=== PATIENT | female | born 1950 | race Caucasian/White ===

== ENCOUNTER 2017-04-15 06:08 | Emergency (ER) | payer BC ==
[2017-04-15] MEDS ORDERED: Ondansetron INJ* 2 MG/ML VIAL IV ONE (07:47)
[2017-04-15] MEDS ORDERED: Metoclopramide IV* 5 MG/ML 2 ML VIAL IV ONE (07:47)
[2017-04-15] MEDS ORDERED: NS 0.9% 1000 ML* 1,000 ML IV ONE (07:47)
--- NOTE | 2017-04-15 08:12 | RAD ---
HISTORY: Headaches radiating to neck COMPARISONS: January 21, 2007 TECHNIQUE: Multiple contiguous axial CT scans were obtained of the head without intravenous contrast. FINDINGS: HEMORRHAGE/INFARCT: There is no hemorrhage or acute infarct. MASSES/SHIFT: There is no mass or shift. EXTRA-AXIAL SPACES: There are no extra-axial fluid collections. SULCI AND VENTRICLES: The sulci and ventricles are normal in size and position for the patient's stated age. CEREBRUM: There are no focal parenchymal abnormalities. BRAINSTEM: There are no focal parenchymal abnormalities. CEREBELLUM: There are no focal parenchymal abnormalities. VESSELS: The vessels are grossly normal. PARANASAL SINUSES: The paranasal sinuses are clear. ORBITS: The orbits are unremarkable. BONES AND SOFT TISSUE: No bone or soft tissue abnormalities are noted. OTHER: None IMPRESSION: NO ACUTE INTRACRANIAL PATHOLOGY.
[2017-04-15 08:38] LABS: Hematocrit 37 % (35-47); Hemoglobin 12.1 g/dl (12.0-16.0); Mean Corpuscular HGB Conc 33 g/dl (31-36); Mean Corpuscular Hemoglobin 29 pg (27-31); Mean Corpuscular Volume 86 fL (80-97); Mean Platelet Volume 8 um3 (7.4-10.4); Red Blood Count 4.25 10^6/ul (4.0-5.4); Red Cell Distribution Width 14 % (10.5-15); White Blood Count 9.9 10^3/ul (3.5-10.8)
[2017-04-15 08:49] LABS: Albumin 3.9 g/dL (3.2-5.2); BUN/Creatinine Ratio 21.1 (8-20); Calcium 9.2 mg/dL (8.6-10.3); EGFR African American 216.6 (>60); EGFR Non-African American 168.4 (>60); Globulin 3.1 g/dL (2-4); Total Bilirubin 0.8 mg/dL (0.2-1.0)
[2017-04-15] MEDS ORDERED: Ketorolac INJ* 30 MG/ML 1 ML VIAL IV PUSH ONE (09:37)
[2017-04-15 11:05] LABS: C Reactive Protein 89.52 mg/L (< 5.00)
[2017-04-15 11:55] LABS: Urine Bilirubin Negative (Negative); Urine Glucose Negative (Negative); Urine Nitrite Negative (Negative)
[2017-04-15 16:32] LABS: Body Fluid Appearance Clear
[2017-04-15 16:44] LABS: CSF Glucose 72 mg/dL (40-70)
[2017-04-15 16:49] LABS: BF WBC Count #1 2
[2017-04-15 16:50] LABS: BF RBC Count #1 2
[2017-04-15 16:51] LABS: BF RBC Count #2 3; BF WBC Count #2 2; Body Fluid WBC 2 /mcL; RBC counts within 6%? Yes; WBC counts within 15%? Yes
[2017-04-15 16:54] LABS: Body Fluid Total Cells Counted 2
[2017-04-15] MEDS ORDERED: DOXYcycline CAP(*) 100 MG PO ONE (17:34)
[2017-04-15 18:04] VITALS: BP 106/72
--- NOTE | 2017-04-18 22:45 | ED ---
Amadeo Tilley Salem, scribed for Sonido Wilcox MD on 04/15/17 at 0741 . Headache - HPI Summary HPI Summary: Patient is a 66 y/o F who presents to the ED with a intermittent headache and neck pain since 6 days ago. She describes the DOYLE as sharp sudden shooting pain bilateral head and states that neck is tender to touch. She reports a low grade fever (102F), lethargy, general myalgia, and pain in joints and bones 6 days ago that have now resolved except for the DOYLE. She denies photophobia and diarrhea, but reports nausea and loss of appetite. Pt denies any recent trauma. Pt saw her PCP 3 days ago and was tested for Lyme disease that returned negative. Pt has an appointment to see Dr. 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 She also has a hx of migraines which she treated with Excedrin, but most recent episode being 10-15 years ago. She states that she returned from the [place] in January 2017. No hx of Lopez's Palsy. - History Of Current Complaint Chief Complaint: EDHeadache Stated Complaint: BODY ACHES Time Seen by Provider: 04/15/17 06:20 Hx Obtained From: Patient Last Known Well Date: 04/08/17 Onset/Duration: Gradual Onset, Started days ago, Still Present Initially Headache Was: Moderate Currently Pain Is: Moderate Timing: Intermittent, Lasting: Character: Sharp Location of Headache: Diffuse Aggravating Factor: Nothing Allevating Factors: Nothing Associated Signs And Symptoms: Nausea, Neck Pain - Allergies/Home Medications Allergies/Adverse Reactions: Allergies Allergy/AdvReac Type Severity Reaction Status Date / Time Shellfish Allergy Allergy Unknown Verified 03/06/16 12:41 Reaction Details PMH/Surg Hx/FS Hx/Imm Hx Neurological History: Reports: Other Neuro Impairments/Disorders - Facial spasm. - Cancer History Hx Chemotherapy: No Hx Radiation Therapy: No Infectious Disease History: Denies: Traveled Outside the [place] in Last 30 Days - Family History Known Family History: Positive: Other - No CVA. - Social History Alcohol Use: None Hx Substance Use: No Substance Use Type: Reports: None Hx Tobacco Use: No Smoking Status (MU): Never Smoked Tobacco Review of Systems Positive: Fever - Low grade fever. , Other - Lethargy. . Negative: Chills Negative: Photophobia, Erythema Positive: Other - Neck pain. . Negative: Sore Throat Negative: Chest Pain Negative: Shortness Of Breath, Cough Positive: Nausea, Other - Loss of appetite. . Negative: Abdominal Pain, Vomiting, Diarrhea Negative: dysuria, hematuria Positive: Myalgia, Other - Pain in "bones and joints.". Negative: Edema Negative: Rash Neurological: Other - No dizziness. Positive: Headache All Other Systems Reviewed And Are Negative: Yes Physical Exam - Summary Physical Exam Summary: Constitutional: Well-developed, Well-nourished, Alert. (-) Distressed Skin: Warm, Dry. Occasional facial twitch. Erythematous migrans to right upper buttocks. HENT: Normocephalic; Atraumatic Eyes: Conjunctiva normal. Appear to have right eye lid paralysis Neck: Musculoskeletal ROM normal neck. (-) JVD, (-) Stridor, (-) Tracheal deviation Cardio: Rhythm regular, rate normal, Heart sounds normal; Intact distal pulses; The pedal pulses are 2+ and symmetric. Radial pulses are 2+ and symmetric. (-) Murmur Pulmonary/Chest wall: Effort normal. (-) Respiratory distress, (-) Wheezes, (-) Rales Abd: Soft, (-) Tenderness, (-) Distension, (-) Guarding, (-) Rebound Musculoskeletal: (-) Edema Lymph: (-) Cervical adenopathy Neuro: Alert, Oriented x3. No severe meningismus. Psych: Mood and affect Normal Triage Information Reviewed: Yes Vital Signs On Initial Exam: Initial Vitals Temp Pulse Resp BP Pulse Ox 98.3 F 89 16 110/79 100 04/15/17 06:18 04/15/17 06:18 04/15/17 06:18 04/15/17 06:18 04/15/17 06:18 Vital Signs Reviewed: Yes Procedures - Lumbar Puncture Aseptic Technique: Lidocaine Anesthesia Used: 1.0% Lido - 3ml. Spinal Needle Used: 22 Gauge - 3.5 in. Lumbar Puncture Note: 2 attempts, L4 L5 Diagnostics - Vital Signs Vital Signs Temp Pulse Resp BP Pulse Ox 04/15/17 07:00 80 105/70 98 04/15/17 06:56 76 97 04/15/17 06:54 106/73 04/15/17 06:18 98.3 F 89 16 110/79 100 - Laboratory Result Diagrams: 04/15/17 08:25 04/15/17 08:25 Lab Statement: Any lab studies that have been ordered have been reviewed, and results considered in the medical decision making process. - CT BRAIN CT Interpretation Completed By: Radiologist - IMPRESSION: NO ACUTE INTRACRANIAL PATHOLOGY. Re-Evaluation - Re-Evaluation First Eval Re-Evaluation Time: 09:44 Comment: Reviewed labs. Discussed risks and benefits of LP, and that it can be fatal while necessary for diagnosis. Pt states that she will think about it. Ordered Toradol. Second Eval Re-Evaluation Time: 11:59 Comment: Pt is willing to proceed after further discussion of risks which include headache, bleeding, and infection. Third Eval Re-Evaluation Time: 16:39 Comment: She is better. DOYLE is resolved. Fourth Eval Re-Evaluation Time: 16:45 Comment: Updated pt. She said rash was new. Fifth Eval Re-Evaluation Time: 17:51 Comment: Updated pt. They are agreeable. Erythema migrans has now spread to face and back of head. Headache Course/Dx - Course Course Of Treatment: 66 y/o F a presents with a intermittent headache and neck pain since 6 days ago. She reports a low grade fever (102F), lethargy, general myalgia, and pain in joints and bones 6 days ago that have now resolved except for the DOYLE. She denies photophobia and diarrhea, but reports nausea and loss of appetite. Pt denies any recent trauma. Pt received Reglan, Zofran, and IV fluids in ED course. CSF is negative for meningitis. Pt will be DC'd. - Diagnoses Provider Diagnoses: Erythema migrans, Cervical headache Discharge - Discharge Plan Condition: Stable Disposition: HOME Prescriptions: DOXYcycline CAP(*) [DOXYcycline 100MG CAP(*)] 100 mg PO BID #42 cap Ketorolac TAB * [Toradol TAB *] 10 mg PO Q6H #15 tab Patient Education Materials: Lyme Disease (ED), Acute Headache (ED) Referrals: Emily Villagomez MD [Primary Care Provider] - Additional Instructions: Please follow up with your primary care provider in 2 days. RETURN TO THE EMERGENCY DEPARTMENT FOR CHANGING OR WORSENING SYMPTOMS. The documentation as recorded by the Amadeo hearn Salem accurately reflects the service I personally performed and the decisions made by me, Sonido Wilcox MD.
[2017-04-19 16:44] LABS: Lyme Disease IgG Ab WB Negative (Negative)
== END 2017-04-15 18:02 | disposition home or self-care (01) ==
LOC: ED 06:08
DX: A69.20 Lyme disease, unspecified (principal); M54.2 Cervicalgia; R11.0 Nausea; R50.9 Fever, unspecified; R51 Headache
CPT/HCPCS: 36415; 62270; 70450; 80053; 81003; 82945; 83605; 84157; 85027; 86140; 86617; 86618; 87040; 87070; 87205; 89051; 96374; 96375; 99283; A9270-GY; J1885; J2405

== ENCOUNTER 2019-12-19 13:52 | Emergency (ER) | payer BC ==
[2019-12-19 15:26] VITALS: BP 139/87
--- NOTE | 2019-12-19 16:13 | UC ---
Hand/Wrist HPI - HPI Summary HPI Summary: 69yo female presenting with right wrist pain after falling on ice right before coming in. States there is pain immediately and "knew it was broken as soon as I saw it." States pain has subsided and does not hurt at rest. Notes mild swelling without bruising. Denies numbness and tingling. States she can move and feel fingers. Denies forearm and elbow pain. Has applied ice. - History Of Current Complaint Chief Complaint: UCUpperExtremity Stated Complaint: WRIST INJURY Hx Obtained From: Patient Pain Intensity: 3 Pain Scale Used: 0-10 Numeric - Allergies/Home Medications Allergies/Adverse Reactions: Allergies Allergy/AdvReac Type Severity Reaction Status Date / Time shellfish derived Allergy Unknown Verified 12/19/19 15:26 Reaction Details Home Medications: Home Medications NK [No Home Medications Reported] 12/19/19 [History Confirmed 12/19/19] PMH/Surg Hx/FS Hx/Imm Hx - Surgical History Surgical History: None - Family History Known Family History: Positive: Other - No CVA. - Social History Alcohol Use: None Substance Use Type: None Smoking Status (MU): Never Smoked Tobacco - Immunization History Most Recent Influenza Vaccination: UNK Most Recent Tetanus Shot: UNKNOWN Most Recent Pneumonia Vaccination: UNK Review of Systems All Other Systems Reviewed And Are Negative: Yes Constitutional: Positive: Negative Skin: Positive: Negative Respiratory: Positive: Negative Cardiovascular: Positive: Negative Gastrointestinal: Positive: Negative Musculoskeletal: Positive: Arthralgia - right wrist pain, Decreased ROM - R wrist d/t pain, Edema - R wrist Neurological/Mental Status: Positive: Negative Physical Exam - Summary Physical Exam Summary: Vital Signs Reviewed: Yes A+Ox3, no distress Eyes: Conjunctiva Clear ENT: Hearing grossly normal neck: supple Respiratory: Positive: No respiratory distress, No accessory muscle use Cardiovascular: skin color reflect adequate perfusion Musculoskeletal Exam: obvious deformity of right wrist with dorsal angulation, tenderness to palpation of wrist, mild edema, no erythema or ecchymosis, strong radial pulses, brisk cap refill less than 2 seconds, sensation grossly intact, no tenderness to palpation of the forearm or elbow, elbow ROM intact Neurological: Positive: Alert, ambulatory without difficulty Psychological: Positive: age appropriate behavior Skin: Positive: no rash, no ecchymosis Vital Signs: Initial Vital Signs Temp 98.6 F 12/19/19 15:20 Pulse 80 12/19/19 15:20 Resp 16 12/19/19 15:20 BP 139/87 12/19/19 15:20 Pulse Ox 100 12/19/19 15:20 Diagnostics - Radiology right wrist Radiology Interpretation Completed By: Radiologist Summary of Radiographic Findings: IMPRESSION: DORSALLY ANGULATED COMMINUTED FRACTURE OF THE DISTAL RADIAL METAPHYSIS WITH ARTICULAR EXTENSION. Hand/Wrist Course/Dx - Course Course Of Treatment: Radiographs revealed right wrist fracture. Discussed findings with patient. I applied a sugar tong splint and provided the patient with a sling. I instructed the patient to keep the splint on and use the sling until follow-up with orthopedics as soon as possible. Instructed to take OTC analgesics for pain relief and elevate the wrist to help alleviate any swelling. Instructed to go to ED with any severe pain, numbness, or inability to move the hand and fingers. Patient voiced understanding and agreed with treatment plan. - Differential Dx/Diagnosis Provider Diagnosis: Distal radius fracture, right Discharge ED - Sign-Out/Discharge Documenting (check all that apply): Patient Departure All imaging exams completed and their final reports reviewed: Yes - Discharge Plan Condition: Stable Disposition: HOME Patient Education Materials: Wrist Fracture in Adults (ED) Forms: *Work Release Referrals: Michaela Perez MD [Medical Doctor] - If Needed Additional Instructions: Rest and elevate the wrist to help alleviate pain and swelling. Keep the splint on until you follow up with orthopedics. You may also take ibuprofen and/or tylenol as directed for pain relief. Follow up with the orthopedic referral listed below as soon as possible for further evaluation and treatment of wrist fracture. Return or go to the emergency room if pain worsens, the hand becomes cold and numb, or you are unable to move the hand. - Billing Disposition and Condition Condition: STABLE Disposition: Home
== END 2019-12-19 16:45 | disposition home or self-care (01) ==
LOC: UCEAST 13:52
DX: S52.501A Unspecified fracture of the lower end of right radius, initial encounter for closed fracture (principal); Z91.013 Allergy to seafood; W00.9XXA Unspecified fall due to ice and snow, initial encounter; Y92.9 Unspecified place or not applicable
CPT/HCPCS: 25600; 99211; G0463

== ENCOUNTER 2019-12-22 08:15 | Day surgery (SDC) | payer BC ==
--- NOTE | 2019-12-21 08:53 | HP ---
AMENDED REPORT NOW INCLUDES DESIGNATED COSIGNER - ESIGNED BEFORE ADJUSTMENTS PREOPERATIVE HISTORY AND PHYSICAL: DATE OF SURGERY/ADMISSION: 12/22/19 DATE OF OFFICE VISIT/ENCOUNTER: 12/20/19 ATTENDING SURGEON: Nadege Hudson MD * (DICTATED BY KERRI HENDERSON) PROCEDURE: Open reduction internal fixation, right wrist. HISTORY OF PRESENT ILLNESS: This is a 69-year-old female who complains of injury to her right wrist. She complains of injury to her right wrist when she feel and landed on her outstretched right hand. She was seen at [facility] and had some x-rays which showed a displaced fracture to the distal radius. She was splinted and referred to Dr. Hudson for further evaluation and treatment considerations. She denies any numbness or tingling. She denies other injury. After exam by Dr. Hudson and review of x-rays, she has consented to proceed with surgical intervention in the form of an open reduction internal fixation, right wrist. PAST MEDICAL HISTORY: 1. History of Lyme disease. 2. History of chest pain, palpitations. 3. 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 PAST SURGICAL HISTORY: 1. . 2. SVT ablation. CURRENT MEDICATIONS: 1. Aspirin 81 mg daily. 2. Ibuprofen 400 to 600 mg q.6 hours p.r.n. ALLERGIES: No known drug allergies. FAMILY MEDICAL HISTORY: Stroke. 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 She denies tobacco use, recreational drug use, and does not drink alcohol. REVIEW OF SYSTEMS: Negative for general, cephalic, cardiovascular, respiratory , GI, , other musculoskeletal, integumentary, endocrine, neurologic, and hematologic symptoms. Infectious Disease: Negative for MRSA, hepatitis C, HIV. PHYSICAL EXAMINATION GENERAL: Well-developed, well-nourished 69-year-old female, in no acute distress. VITAL SIGNS: Height 5 feet 4 inches, weight 112 pounds, pulse rate 82, blood pressure 126/78. HEENT: Normocephalic and atraumatic. Pupils are equal, round, and reactive to light and accommodation. Extraocular movements are intact. Throat is clear. NECK: Supple. No palpable lymph nodes. PULMONARY: Lungs are clear to auscultation bilaterally. No wheezes, rales, or rhonchi. CARDIOVASCULAR: Regular rate and rhythm. S1 and S2. No murmurs, rubs, or gallops. No edema. ABDOMEN: Positive bowel sounds. Soft and nontender. NEUROLOGIC: Alert and oriented x3. Cranial nerves II through XII are intact. Sensation is intact to light touch. MUSCULOSKELETAL: On exam of her right upper extremity, her forearm is maintained in a sugar-tong splint. There is some moderate swelling in her fingers. She has intact neurovascular function in her fingers, but she has fairly good motion. Skin is intact. Neurovascular function is intact. IMAGING STUDIES: X-rays AP, lateral, and oblique at the right wrist show a significantly displaced fracture at the distal radius. ASSESSMENT: Right distal radius fracture, displaced. PLAN/RECOMMENDATIONS: The patient is scheduled to undergo an open reduction internal fixation of the right wrist on 12/22/19. She will return to the office 10 days postop for followup and suture removal. A prescription for Dorrance was e- scribed to the patient's pharmacy for postoperative pain management. KERRI HENDERSON [id number]/[facility] #: [id number] ARANZA
[~2019-12-22 08:15] MED LIST: Buffered Lidocaine 1% SYRIN* 1 ML/SYRINGE INTRADERM ONE; Famotidine IV* 10 MG/ML 2 ML (20 mg) IV ONE; Famotidine IV* 10 MG/ML 2 ML (20 mg) ONE; Lactated Ringers 1000 ML Bag* 1,000 ML IV SCH
[2019-12-22] MEDS ORDERED: Bupivacaine 0.5% SDV PF* 30ML VIAL ONE (08:42)
[2019-12-22] MEDS ORDERED: ceFAZolin 2 GM PREMIX in ORs 2 GM/50 ML BAG ONE (08:49)
[2019-12-22] MEDS ORDERED: fentaNYL* 50 MCG/ML 2 ML VIAL (100 MCG VIAL) ONE ×2 (08:54→10:56)
[2019-12-22] MEDS ORDERED: Midazolam* 1 MG/ML 2 ML VIAL (2 MG) ONE (08:54)
[2019-12-22] MEDS ORDERED: Lidocaine 2% PF * 5 ML VIAL ONE (09:20)
[2019-12-22] MEDS ORDERED: Ondansetron INJ* 2 MG/ML VIAL ONE (09:28)
[2019-12-22] MEDS ORDERED: Dexamethasone IV* 4 MG/ML 1 ML (4 MG) ONE (09:28)
[2019-12-22] MEDS ORDERED: Ketorolac INJ* 30 MG/ML 1 ML VIAL ONE (09:28)
[2019-12-22] MEDS ORDERED: Propofol* 10 MG/ML 20 ML BTL ONE (09:28)
[2019-12-22] MEDS ORDERED: Acetaminophen IV 1GM/100ML * 100 ML ONE (09:41)
[2019-12-22] MEDS ORDERED: fentaNYL* 50 MCG/ML 2 ML VIAL (100 MCG VIAL) IV PRN (09:51)
[2019-12-22] MEDS ORDERED: Naloxone* 0.4 MG/ML 1 ML VIAL IV PRN (09:51)
[2019-12-22] MEDS ORDERED: oxyCODONE TAB* 5 MG TAB PO PRN (09:51)
[2019-12-22] MEDS ORDERED: diPHENhydraMINE IV* 50 MG/ML 1 ml VIAL (BENADRYL) IV PRN (09:51)
[2019-12-22] MEDS ORDERED: Ondansetron INJ* 2 MG/ML VIAL IV PRN (09:51)
[2019-12-22] MEDS ORDERED: DiMENhydriNATE IV* 50 MG/ML VIAL IV PUSH PRN (09:51)
[2019-12-22] MEDS ORDERED: HYDROcodone/ACETAMIN 5-325 MG* 1 TAB ONE (10:27)
[2019-12-22 11:04] VITALS: BP 125/76
--- NOTE | 2019-12-22 22:22 | OP ---
DATE OF OPERATION: 12/22/[address] [facility] DATE OF : 46 SURGEON: Nadege Hudson MD. MECHANICAL INSULATOR: KERRI Le. ANESTHESIA: General. PRE-OP DIAGNOSIS: Distal radius fracture, which is displaced. POST-OP DIAGNOSIS: Distal radius fracture, which is displaced. OPERATIVE PROCEDURE: Open reduction internal fixation of the right distal radius. ESTIMATED BLOOD LOSS: Zero. TOURNIQUET TIME: About 40 minutes. INDICATIONS FOR PROCEDURE: Jayde is a 69-year-old woman who fell and injured her right wrist. She has a significantly displaced fracture of the distal radius. She presents for open reduction internal fixation. DESCRIPTION OF PROCEDURE: The patient was brought to the operating room, was given a general anesthetic and placed in the supine position on the operating table with a tourniquet around her right upper arm. The skin of her right upper extremity was prepped and draped in the usual sterile fashion. The upper extremity was exsanguinated and the tourniquet elevated to 250 mmHg. A longitudinal incision was made over the FCR tendon. We dissected through the subcutaneous tissue down to the tendon sheath. The FCR tendon sheath was incised both superficial and deep and then the FPL muscle and tendon were retracted ulnarly. The pronator quadratus was incised and subperiosteally dissected off of the distal radius. With manipulation, the fracture was reduced and its position was checked on the C-arm in the AP and lateral views and found to be satisfactory. Next, I secured a 3-hole plate from the [employer] distal radius set with 3 proximal and 4 distal screws. The position of the hardware and fracture fragments was checked on the C-arm in the AP and lateral views and found to be satisfactory. The wound was irrigated and then the pronator quadratus was reapproximated with 2-0 Vicryl suture. The FCR tendon sheath was also repaired with 2-0 Vicryl and then the skin edges reapproximated with 4-0 nylon suture. The wound was dressed with Xeroform, 4x4, Webril, and an Aaron wrap with a volar splint. The patient tolerated the procedure well and was brought to the recovery room in good condition. [id number]/[facility] #: [id number] [facility] HOSPITALDolly
== END 2019-12-22 11:27 | disposition home or self-care (01) ==
LOC: OREAST 08:15
PROVIDERS: ATTEND Orthopaedic Surgery
DX: S52.571A Other intraarticular fracture of lower end of right radius, initial encounter for closed fracture (principal); W18.30XA Fall on same level, unspecified, initial encounter; Y92.9 Unspecified place or not applicable; I47.1 Supraventricular tachycardia; Z86.19 Personal history of other infectious and parasitic diseases; Z91.013 Allergy to seafood
CPT/HCPCS: 76000; C1713; C1776; J0690; J1100; J1885; J2250; J2405; J2704; J3010; J3490